=== PATIENT | male | born 1940 | race Asian ===

== ENCOUNTER 2016-11-08 08:28 | Inpatient (IN) | payer OTHER ==
[~2016-11-08] VITALS: Ht 165.1 cm; Wt 60.4 kg
[2016-11-08] VITALS (64 sets, daily range): BP systolic 62–176; BP diastolic 52–84; PULSE 68–103; RESP 0–25; Ht 165.1 cm; Wt 60.4 kg
[~2016-11-08 08:28] MED LIST: AMLO5TAB4 PO; APIX2.5T PO; ASPI-535 PO; CEFAZOLIN 1 GM INJ ONE; FLEC50TA PO; LISI20TA11 PO; METOPROLOL 5 MG INJ ONE
[2016-11-08] MEDS ORDERED: ATOR40TA68 PO (09:42)
[2016-11-08] MEDS ORDERED: BIMA2.5D BOTH EYES (09:42)
[2016-11-08 10:05] LABS: ADD SCAN DIFF NO
[2016-11-08 10:08] LABS: BASOPHIL # 0.1 10^3/ul (0.0-0.1); BASOPHILS % 1.1 % (0.0-2.0); EOSINOPHILS # 0.4 10^3/ul (0.0-0.5); EOSINOPHILS % 5.1 % (0.0-7.0); HEMATOCRIT 41.8 % (42.0-52.0); HEMOGLOBIN 14.2 g/dl (14.0-18.0); LYMPHOCYTES % 25.7 % (15.0-51.0); MEAN CORPUSCULAR HEMOGLOBIN 30.6 pg (29.0-33.0); MEAN CORPUSCULAR VOLUME 90.1 fl (82.0-101.0); MEAN PLATELET VOLUME 9.9 fl (7.4-10.4); MONOCYTE # 0.6 10^3/ul (0.3-0.9); MONOCYTES % 7.5 % (0.0-11.0); NEUTROPHIL # 4.6 10^3/ul (1.6-7.5); NEUTROPHILS % 60.5 % (39.0-77.0); PLATELET COUNT 273 10^3/UL (140-415); RED BLOOD COUNT 4.64 10^6/ul (4.70-6.10); RED CELL DISTRIBUTION WIDTH 12.5 % (11.5-14.5); WHITE BLOOD COUNT 7.6 10^3/ul (4.8-10.8)
--- NOTE | 2016-11-08 10:13 | RADRPT ---
PROCEDURE: XR Chest. CLINICAL INDICATION: PREOP TECHNIQUE: Single frontal chest x-ray. COMPARISON: None. FINDINGS: The lungs are clear of acute infiltrates, edema, effusions, or masses. There is left apical pleural and parenchymal scarring. Focal opacities in the right upper and mid lung zone are seen. No alveol ar infiltrates or effusions.. Mild cardiomegaly with calcific atherosclerosis of the aorta is prese nt.. The osseous structures are intact. IMPRESSION: Focal small opacities in the right upper and mid lung zone. Question scarring. Recommend compariso n with outside chest x-rays. CT scan of the chest could be obtained if further evaluation is indica chito. Left apical pleural and parenchymal scarring. Cardiomegaly with calcified aorta. RPTAT: VV .Bebo Melvin MD, Date Time Electronically viewed and signed by .Bebo Melvin MD, on 11/08/2016 10:13 .L/
[2016-11-08] MEDS ORDERED: BUPIVACAINE 0.25% (MPF) 30 ML INJ ONE (12:13)
[2016-11-08] MEDS ORDERED: GELATIN SIZE 100 SPONGE ONE (12:13)
[2016-11-08] MEDS ORDERED: THROMBIN 5000 UNIT VIAL ONE (12:13)
[2016-11-08] MEDS ORDERED: HEPARIN 1000 UNITS/ML 10 ML INJ ONE ×2 (12:13→13:16)
[2016-11-08] MEDS ORDERED: MIDAZOLAM 1 MG/ML 2 ML INJ ONE (12:21)
--- NOTE | 2016-11-08 12:23 | HPN ---
Date/Time of Note Date/Time of Note DATE: 11/08/16 TIME: 12:22 Interval H&P Admission Note Pt. seen H&P reviewed: No system changes ANUSHA URBINA MD Nov 08, 2016 12:23
[2016-11-08] MEDS ORDERED: hydrALAzine 20 MG INJ ONE (13:11)
[2016-11-08] MEDS ORDERED: BUPIVACAINE 0.5% (SDV) 30 ML INJ ONE (14:28)
[2016-11-08] MEDS ORDERED: GELATIN SIZE 100 SPONGE TOP ONE (14:29)
[2016-11-08] MEDS ORDERED: THROMBIN 5000 UNIT VIAL TOP ONE (14:29)
[2016-11-08] MEDS ORDERED: BUPIVACAINE 0.5% (SDV) 30 ML INJ INJ ONE (14:31)
[2016-11-08] MEDS ORDERED: LIDOCAINE 2% (SDV) 5 ML INJ ONE (14:47)
[2016-11-08] MEDS ORDERED: ETOMIDATE 20 MG INJ ONE (14:47)
[2016-11-08] MEDS ORDERED: ROCURONIUM 50 MG INJ ONE (14:48)
[2016-11-08] MEDS ORDERED: GLYCOPYRROLATE 1 MG INJ ONE (14:48)
[2016-11-08] MEDS ORDERED: NEOSTIGMINE 3 MG/3 ML SYRINGE ONE (14:48)
[2016-11-08] MEDS ORDERED: ONDANSETRON 4 MG INJ ONE (14:48)
--- NOTE | 2016-11-08 15:09 | OPR ---
Date/Time of Note Date/Time of Note DATE: 11/08/16 TIME: 15:07 Operative Report Procedure Date: Nov 08, 2016 Preoperative Diagnosis Left ICA severe stenosis Postoperative Diagnosis same Operation Performed Left CEA and patch Surgeon: ANUSHA URBINA MD assistant hall director: SHARYN KOROMA MD Anesthesia: general Estimated Blood Loss: 100 - 150 ml's Specimens Plaque Tubes/Drains None Complications: None Pt Condition Post Procedure: stable Disposition: PACU ANUSHA URBINA MD Nov 08, 2016 15:09
[2016-11-08] MEDS ORDERED: ACETAMINOPHEN 325 MG TAB PO PRN (15:30)
[2016-11-08] MEDS ORDERED: MEPERIDINE 25 MG INJ IV PRN (15:30)
[2016-11-08] MEDS ORDERED: DIPHENHYDRAMINE 50 MG INJ IV PRN (15:30)
[2016-11-08] MEDS ORDERED: FENTAnyl 50 MCG/ML VIAL IV PRN ×3 (15:30)
[2016-11-08] MEDS ORDERED: morphine (1 MG/ML) 10ML SYRINGE IV PRN ×3 (15:30)
[2016-11-08] MEDS ORDERED: ONDANSETRON 4 MG INJ IV PRN (15:30)
[2016-11-08] MEDS ORDERED: HYDROmorphONE (0.2 MG/ML) 10ML SYG IV PRN ×3 (15:30)
[2016-11-08] MEDS ORDERED: HYDROmorphONE (0.2 MG/ML) 10ML SYG IV ONE (15:33)
[2016-11-08] MEDS: CEFAZOLIN 2 GM/50 ML (PMX) 50 ML IVPB SCH (15:48)
[2016-11-08] MEDS: SOD CHLORIDE 0.9% 1,000 ML IV SCH (15:49)
[2016-11-08 19:22] LABS: POTASSIUM 3.6 mmol/L (3.5-5.1)
[2016-11-08 19:23] LABS: CALCIUM 8.2 mg/dl (8.4-10.2)
[2016-11-08] MEDS: FAMOTIDINE 20 MG INJ IV SCH (21:52)
--- NOTE | 2016-11-08 22:11 | QN ---
Documentation Comment [id number] LESTER ROSENTHAL MD Nov 08, 2016 22:11
[2016-11-08] MEDS ORDERED: ATORVASTATIN 40 MG TAB PO SCH (22:30)
[2016-11-09] VITALS (33 sets, daily range): BP systolic 115–175; BP diastolic 44–138; PULSE 65–110; RESP 11–25
[2016-11-09] MEDS: hydrALAzine 20 MG INJ IV PRN (00:51)
[2016-11-09] MEDS: SOD CHLORIDE 0.9% 1,000 ML IV SCH ×3 (00:51→23:50)
[2016-11-09] MEDS: LATANOPROST 0.005% 2.5 ML OPH BOTH EYES SCH ×2 (00:51→21:13)
[2016-11-09] MEDS: CEFAZOLIN 2 GM/50 ML (PMX) 50 ML IVPB SCH ×2 (01:27→08:02)
--- NOTE | 2016-11-09 03:38 | SP ---
DATE OF PROCEDURE: 11/08/2016 PREOPERATIVE DIAGNOSIS: Severe left internal carotid artery stenosis. POSTOPERATIVE DIAGNOSIS: Severe left internal carotid artery stenosis. OPERATION PERFORMED: Left carotid endarterectomy with patch angioplasty. SURGEON: Anusha Wallace MD PRINTING WORKER SUPERVISOR: Rajendra Osorio MD ANESTHESIA: General by Valente Laguna MD. INDICATION OF THE PROCEDURE: The patient is a 76-year-old male who presented with a high-grade zohra nosis of left CA, confirmed on a CTA of the carotid. The patient was consented for the above-mentio nazia procedure. Risks and benefits were discussed with him and his family. They understood and agre ed to proceed. DESCRIPTION OF PROCEDURE: The patient was brought to the operating room, after obtaining informed c onsent, placed in supine position on the operating table. Anesthesia was administered and maintaine d using endotracheal intubation. The area of surgery was cleaned, prepped and draped in regular zohra rile fashion. An oblique incision along the anterior border of the left sternomastoid muscle was do ne using 15-blade scalpel, taken down to subcutaneous tissue using the Bovie. Using sharp dissectio n with Metzenbaum scissor, the carotid sheath was opened carefully. The common carotid, internal ca rotid and external carotid arteries were identified, dissected circumferentially with Metzenbaum sci ssor. Tributaries from the internal jugular vein were doubly ligated with 3-0 silk suture and trans ected. The vagus and hypoglossal nerves were identified and preserved through the entire procedure. The patient was heparinized intravenously. A longitudinal arteriotomy was done in the common myers tid artery, extended to the intact internal carotid artery using Padgett scissor and 11-blade scalpel. Then, a straight shunt was placed in the lumen. Lumen was flushed with heparinized saline to freida ve the debris. Endarterectomy was done using blunt finger with loose transitioning of the intima pr oximally and distally. The lumen was flushed multiple times to remove the debris carefully and aide d by fine forceps. The distal and the proximal intima were tacked in place using interrupted suture 6-0 and 5-0 Prolene sutures. Using closing patch the arteriotomy was closed using 5-0 and 6-0 Prol brook suture in a continuous running technique. Prior to completion of suture line, the shunt was rem maurizio. Retrograde and antegrade flush of the lumen was flush completed. Hemostasis of suture line achieved using Gelfoam thrombin, and 0.5% Marcaine was then used to infiltrate skin and subcuta neous tissue for postoperative pain control. Subcutaneous tissue, platysma were closed in multiple layers using 3-0 Vicryl sutures. The edges of the skin approximated together using 4-0 Monocryl in subcuticular fashion. Steri-Strips were applied, as well as dry dressing. The patient was then ext ubated successfully and was found to be neurologically intact, transferred to recovery area in stabl e condition. Dictated By: ANUSHA STYLES/JO-ANN Conf#: [id number] DID#: [id number] CC: CAMILLA WHITE MD;*End*
[2016-11-09 04:38] LABS: ADD SCAN DIFF NO
--- NOTE | 2016-11-09 04:40 | HP ---
DATE OF ADMISSION: 11/08/2016 HISTORY OF PRESENT ILLNESS: Thank you, Dr. Wallace, for kindly asking me to see this patient in consultation. The patient has a history of hypertension, dyslipidemia, left carotid artery endarterectomy, and is . The patient himself is unable to give any detailed since he is sleepy. PAST MEDICAL HISTORY: Positive for hypertension, dyslipidemia, and status post left carotid artery endarterectomy. ALLERGIES: . MEDICATION HISTORY: 1. Amlodipine. 2. Apixaban. 3. Lipitor. 4. Lumigan. 5. Lisinopril. REVIEW OF SYSTEMS: Cannot be obtained at this point. PHYSICAL EXAMINATION: GENERAL: The patient is awake, alert, sleepy. VITAL SIGNS: Pulse 81, blood pressure 100/71. HEENT: Head is atraumatic, normocephalic. Pupils equal, reactive to light. NECK: Supple. No JVD. LUNGS: Clear. CARDIOVASCULAR: S1, S2 normal. ABDOMEN: Soft, nontender. Bowel sounds present. No palpable mass. EXTREMITIES: No cyanosis, clubbing, edema. CENTRAL NERVOUS SYSTEM: The patient is awake, alert, no deficit. The patient has a dressing left carotid artery noted. LABORATORY DATA: Sodium 142, potassium 3.6, . IMPRESSION: 1. Status post left carotid endarterectomy. 2. Hypertension. PLAN: To follow recommendation from Dr. Wallace. The patient will have home medications reviewed and continued for blood pressure control. Laboratory data will be obtained. Pain medications and DVT prophylaxis. Dictated By: LESTER THORNTON/JO-ANN Conf#: [id number] DID#: [id number] MTDD
[2016-11-09 04:52] LABS: BASOPHILS % 0.3 % (0.0-2.0); EOSINOPHILS # 0.1 10^3/ul (0.0-0.5); EOSINOPHILS % 0.6 % (0.0-7.0); HEMATOCRIT 39.9 % (42.0-52.0); HEMOGLOBIN 13.2 g/dl (14.0-18.0); LYMPHOCYTES # 0.8 10^3/ul (0.8-2.9); LYMPHOCYTES % 7.1 % (15.0-51.0); MEAN CORPUSCULAR HEMOGLOBIN 29.9 pg (29.0-33.0); MEAN CORPUSCULAR HGB CONC 33.1 g/dl (32.0-37.0); MEAN CORPUSCULAR VOLUME 90.3 fl (82.0-101.0); MEAN PLATELET VOLUME 9.9 fl (7.4-10.4); MONOCYTE # 0.9 10^3/ul (0.3-0.9); MONOCYTES % 7.9 % (0.0-11.0); NEUTROPHILS % 83.7 % (39.0-77.0); PLATELET COUNT 247 10^3/UL (140-415); RED BLOOD COUNT 4.42 10^6/ul (4.70-6.10); WHITE BLOOD COUNT 10.8 10^3/ul (4.8-10.8)
[2016-11-09 04:57] LABS: POTASSIUM 4.2 mmol/L (3.5-5.1)
[2016-11-09 05:00] LABS: CREATININE 1.04 mg/dl (0.61-1.24)
[2016-11-09 05:01] LABS: CALCIUM 8.2 mg/dl (8.4-10.2)
[2016-11-09] MEDS: ONDANSETRON 4 MG INJ IV PRN (05:35)
[2016-11-09] MEDS: PANTOPRAZOLE 40 MG INJ IV SCH (05:35)
[2016-11-09] MEDS: morphine 2 MG INJ IV PRN (05:36)
[2016-11-09] MEDS: LISINOPRIL 20 MG TAB PO SCH (08:07)
[2016-11-09] MEDS: AMLODIPINE 2.5 MG TAB PO SCH (08:07)
[2016-11-09] MEDS: FAMOTIDINE 20 MG INJ IV SCH (08:36)
--- NOTE | 2016-11-09 13:13 | PN ---
Date/Time of Note Date/Time of Note DATE: 11/09/16 TIME: 13:11 Assessment/Plan Lines/Catheters IV Catheter Type (from Nrsg): Peripheral IV Lambert in Place (from Nrsg): Yes Assessment/Plan Assessment/Plan Doing well s/p L CEA Discharge home f/u with Dr. Wallace in the office in 7-10 days Subjective 24 Hr Interval Summary Awake and alert, no pain. Speech fluent. Tolerating regular diet. Exam/Review of Systems Vital Signs Vitals Vital Signs Date Time Temp Pulse Resp B/P Pulse Ox O2 Delivery O2 Flow Rate FiO2 11/09/16 12:00 75 11/09/16 08:00 Nasal Cannula 2.0 11/09/16 06:30 19 158/59 94 11/09/16 04:00 99.0 Intake and Output 11/08/16 11/08/16 11/09/16 15:00 23:00 07:00 Intake Total 1540 ml 1390 ml Output Total 880 ml 590 ml Balance 660 ml 800 ml Exam Free Text/Dictation L neck incision flat, clean and dry Tongue midline Normal B U/LE motor and sensory function Results Result Diagram: 11/09/16 0425 11/09/16 0425 ELIZABETH EPPERSON MD Nov 09, 2016 13:13
[2016-11-09] MEDS: ATORVASTATIN 10 MG TAB PO SCH (21:13)
[2016-11-09] MEDS: IBUPROFEN 600 MG TAB PO PRN (21:14)
--- NOTE | 2016-11-09 23:02 | PN ---
Date/Time of Note Date/Time of Note DATE: 11/09/16 TIME: 23:01 Assessment/Plan VTE Prophylaxis VTE Prophylaxis Intervention: other Lines/Catheters IV Catheter Type (from Nrsg): Peripheral IV Urinary Cath still in place: Yes Reason Cath still needed: other (indicate) Assessment/Plan Chief Complaint/Hosp Course IMPRESSION: 1. Status post left carotid endarterectomy. 2. Hypertension. plan per surgery pt/ot Problems: Subjective 24 Hr Interval Summary Subjective hx not possible: other (weakness) Genitourinary: no complaints Musculoskeletal: no complaints Exam/Review of Systems Vital Signs Vitals Vital Signs Date Time Temp Pulse Resp B/P Pulse Ox O2 Delivery O2 Flow Rate FiO2 11/09/16 21:07 2.0 11/09/16 20:00 100.4 110 22 151/61 93 Nasal Cannula Intake and Output 11/08/16 11/08/16 11/09/16 15:00 23:00 07:00 Intake Total 1540 ml 1490 ml Output Total 880 ml 590 ml Balance 660 ml 900 ml Exam Respiratory: clear to auscultation Cardiovascular: regular rate and rhythm Gastrointestinal: soft Musculoskeletal: nl extremities to inspection Neurological: EDUCATIONAL TECHNOLOGY SPECIALIST II-XII intact, nl mental status Results Result Diagram: 11/09/165 11/09/16 0425 Results 24 hrs Laboratory Tests Test 11/09/16 04:25 White Blood Count 10.8 # Red Blood Count 4.42 L Hemoglobin 13.2 L Hematocrit 39.9 L Mean Corpuscular Volume 90.3 Mean Corpuscular Hemoglobin 29.9 Mean Corpuscular Hemoglobin Concent 33.1 Red Cell Distribution Width 13.0 Platelet Count 247 Mean Platelet Volume 9.9 Neutrophils % 83.7 H Lymphocytes % 7.1 L Monocytes % 7.9 Eosinophils % 0.6 Basophils % 0.3 Nucleated Red Blood Cells % 0.0 Neutrophils # 9.0 H Lymphocytes # 0.8 Monocytes # 0.9 Eosinophils # 0.1 Basophils # 0.0 Nucleated Red Blood Cells # 0.0 Sodium Level 142 Potassium Level 4.2 Chloride Level 108 Carbon Dioxide Level 22 Anion Gap 16 Blood Urea Nitrogen 12 Creatinine 1.04 Glucose Level 125 Calcium Level 8.2 L Medications Medications Current Medications Acetaminophen (Tylenol Tab) 650 mg Q6H PRN PO PAIN AND OR ELEVATED TEMP; Start 11/08/16 at 15:30 Ondansetron HCl (Zofran Inj) 4 mg Q6H PRN IV NAUSEA AND/OR VOMITING Last administered on 11/09/16 05:35; Admin Dose 4 MG; Start 11/08/16 at 15:30 Famotidine 20 mg 20 mg DAILY IV Last administered on 11/09/16 08:36; Admin Dose 20 MG; Start 11/08/16 at 21:00 Sodium Chloride (NS) 1,000 ml @ 100 mls/hr Q10H IV Last administered on 12:33; Admin Dose 100 MLS/HR; Start 11/08/16 at 15:07 Morphine Sulfate (morphine) 2 mg Q4H PRN IV PAIN LEVEL 4-6 Last administered on 11/09/16 05:36; Admin Dose 2 MG; Start 11/08/16 at 19:00 Amlodipine Besylate (Norvasc) 2.5 mg DAILY PO Last administered on 11/09/16 08 :07; Admin Dose 2.5 MG; Start 11/09/16 at 09:00 Latanoprost (Xalatan) 1 drop HS BOTH EYES Last administered on 11/09/16 21:13 ; Admin Dose 1 DROP; Start 11/08/16 at 23:00 Lisinopril (Zestril) 20 mg DAILY PO Last administered on 11/09/16 08:07; Admin Dose 20 MG; Start 11/09/16 at 09:00 Pantoprazole (Protonix Iv) 40 mg DAILY@06 IV Last administered on 11/09/16 05: 35; Admin Dose 40 MG; Start 11/09/16 at 06:00 Hydralazine HCl (Apresoline) 10 mg Q6H PRN IV For SBP > 165 Last administered on 11/09/16 00:51; Admin Dose 10 MG; Start 11/08/16 at 22:30 Atorvastatin Calcium (Lipitor) 10 mg QHS PO Last administered on 11/09/16 21: 13; Admin Dose 10 MG; Start 11/08/16 at 22:31 Ibuprofen (Motrin) 600 mg BID PRN PO INFLAMATION Last administered on 21:14; Admin Dose 600 MG; Start 11/09/16 at 17:30 LESTER ROSENTHAL MD Nov 09, 2016 23:02
[2016-11-10] VITALS (23 sets, daily range): BP systolic 97–163; BP diastolic 57–90; PULSE 62–97; RESP 15–23
[2016-11-10] MEDS: PANTOPRAZOLE 40 MG INJ IV SCH (05:33)
[2016-11-10] MEDS: IBUPROFEN 600 MG TAB PO PRN ×2 (06:09→19:36)
[2016-11-10] MEDS: LISINOPRIL 20 MG TAB PO SCH (09:03)
[2016-11-10] MEDS: AMLODIPINE 2.5 MG TAB PO SCH (09:04)
[2016-11-10] MEDS: FAMOTIDINE 20 MG INJ IV SCH (09:04)
[2016-11-10] MEDS: SOD CHLORIDE 0.9% 1,000 ML IV SCH ×2 (10:08→18:15)
[2016-11-10 12:13] LABS: ADD SCAN DIFF NO
[2016-11-10 12:15] LABS: ABNORMAL IP MESSAGE 1; BASOPHILS % 0.2 % (0.0-2.0); EOSINOPHILS # 0.2 10^3/ul (0.0-0.5); EOSINOPHILS % 1.1 % (0.0-7.0); HEMATOCRIT 36.6 % (42.0-52.0); HEMOGLOBIN 12.3 g/dl (14.0-18.0); LYMPHOCYTES # 1.4 10^3/ul (0.8-2.9); MEAN CORPUSCULAR HEMOGLOBIN 31.1 pg (29.0-33.0); MEAN CORPUSCULAR HGB CONC 33.6 g/dl (32.0-37.0); MEAN CORPUSCULAR VOLUME 92.4 fl (82.0-101.0); MEAN PLATELET VOLUME 9.8 fl (7.4-10.4); MONOCYTE # 1.5 10^3/ul (0.3-0.9); MONOCYTES % 11.2 % (0.0-11.0); NEUTROPHIL # 10.5 10^3/ul (1.6-7.5); PLATELET COUNT 203 10^3/UL (140-415); RED BLOOD COUNT 3.96 10^6/ul (4.70-6.10); RED CELL DISTRIBUTION WIDTH 12.9 % (11.5-14.5); WHITE BLOOD COUNT 13.7 10^3/ul (4.8-10.8)
[2016-11-10 12:24] LABS: POTASSIUM 4.4 mmol/L (3.5-5.1)
[2016-11-10 12:27] LABS: CREATININE 1.18 mg/dl (0.61-1.24)
[2016-11-10 12:28] LABS: CALCIUM 8.4 mg/dl (8.4-10.2); URIC ACID 6.4 mg/dl (3.1-7.9)
[2016-11-10] MEDS: COLCHICINE 0.6 MG TAB PO SCH ×2 (13:21→22:08)
[2016-11-10] MEDS: morphine 2 MG INJ IV PRN (13:27)
[2016-11-10] MEDS: ONDANSETRON 4 MG INJ IV PRN (13:27)
[2016-11-10] MEDS ORDERED: VANCOMYCIN IV PER PHARMACY XX SCH (19:30)
[2016-11-10] MEDS: CEFTRIAXONE 1 GM/50 ML (PMX) 50 ML IVPB SCH (19:34)
[2016-11-10] MEDS: hydrALAzine 20 MG INJ IV PRN (19:36)
[2016-11-10] MEDS ORDERED: VANCOMYCIN 1.25 GM in SOD CHLORIDE 0.9% 250 ML IVPB SCH (20:00)
--- NOTE | 2016-11-10 20:08 | RADRPT ---
PROCEDURE: XR Chest AP portable CLINICAL INDICATION: Fever TECHNIQUE: An AP portable radiograph of the chest was submitted. COMPARISON: 11/08/2016 FINDINGS: Support Hardware: None Cardiovascular: The heart remains mildly enlarged and the pulmonary vasculature appears unremarkable . The aorta again appears atherosclerotic. Lung Martinez: Reticular scarring with volume loss is again evident within the left upper lobe and to a lesser extent within the right mid lung zone and left lower lung zone, unchanged. No alveolar inf iltrate is evident. Pleural Spaces: No pneumothorax or pleural effusion is identified. Osseous Structures: The osseous structures appear intact. Soft Tissues: The soft tissues appear unremarkable. IMPRESSION: 1. No change to the reticular scarring and volume loss of the left upper lobe and also to the right mid lung zone and to a lesser extent the left lung base. No alveolar infiltrate or nodule is evide nt. 2. Persistent cardiomegaly with atherosclerotic changes to the aorta without CHF. Physician Enrico Date Time Electronically viewed and signed by Physician Enrico on 11/10/2016 20:08 /
[2016-11-10] MEDS: METHYLPREDNISOLONE 40 MG INJ IV SCH (21:00)
[2016-11-10] MEDS: ATORVASTATIN 10 MG TAB PO SCH (22:08)
[2016-11-10] MEDS: LATANOPROST 0.005% 2.5 ML OPH BOTH EYES SCH (23:00)
--- NOTE | 2016-11-10 23:13 | PN ---
Date/Time of Note Date/Time of Note DATE: 11/10/16 TIME: 23:11 Assessment/Plan VTE Prophylaxis VTE Prophylaxis Intervention: other Lines/Catheters IV Catheter Type (from Nrsg): Peripheral IV Assessment/Plan Chief Complaint/Hosp Course IMPRESSION: 1. Status post left carotid endarterectomy. 2. Hypertension. 3 knee pain 4 poss gout plan per surgery pt/ot ,pain meds Problems: Subjective 24 Hr Interval Summary Cardiovascular: no complaints Gastrointestinal: no complaints Musculoskeletal: swelling Exam/Review of Systems Vital Signs Vitals Vital Signs Date Time Temp Pulse Resp B/P Pulse Ox O2 Delivery O2 Flow Rate FiO2 11/10/16 20:19 97 11/10/16 19:08 100.0 16 163/79 92 11/10/16 17:00 Nasal Cannula 2.0 Intake and Output 11/09/16 11/09/16 11/10/16 15:00 23:00 07:00 Intake Total 1130 ml 850 ml 1015 ml Output Total 535 ml 500 ml 700 ml Balance 595 ml 350 ml 315 ml Exam Neck: supple Respiratory: clear to auscultation Cardiovascular: regular rate and rhythm Musculoskeletal: range of motion (knee pain) Results Result Diagram: 11/10/16 1204 11/10/16 1204 Results 24 hrs Laboratory Tests Test 11/10/16 12:04 White Blood Count 13.7 #H Red Blood Count 3.96 L Hemoglobin 12.3 L Hematocrit 36.6 L Mean Corpuscular Volume 92.4 Mean Corpuscular Hemoglobin 31.1 Mean Corpuscular Hemoglobin Concent 33.6 Red Cell Distribution Width 12.9 Platelet Count 203 Mean Platelet Volume 9.8 Neutrophils % 77.0 Lymphocytes % 10.0 L Monocytes % 11.2 H Eosinophils % 1.1 Basophils % 0.2 Nucleated Red Blood Cells % 0.0 Neutrophils # 10.5 H Lymphocytes # 1.4 Monocytes # 1.5 H Eosinophils # 0.2 Basophils # 0.0 Nucleated Red Blood Cells # 0.0 Sodium Level 144 Potassium Level 4.4 Chloride Level 109 Carbon Dioxide Level 25 Anion Gap 14 Blood Urea Nitrogen 11 Creatinine 1.18 Glucose Level 76 # Uric Acid 6.4 Calcium Level 8.4 Medications Medications Current Medications Acetaminophen (Tylenol Tab) 650 mg Q6H PRN PO PAIN AND OR ELEVATED TEMP Last administered on 11/10/16t 19:36; Admin Dose 650 MG; Start 11/08/16 at 15:30 Ondansetron HCl 4 mg 4 mg Q6H PRN IV NAUSEA AND/OR VOMITING Last administered on 11/10/16 13:27; Admin Dose 4 MG; Start 11/08/16 at 15:30 Sodium Chloride (NS) 1,000 ml @ 100 mls/hr Q10H IV Last administered on 10:08; Admin Dose 100 MLS/HR; Start 11/08/16 at 15:07 Morphine Sulfate (morphine) 2 mg Q4H PRN IV PAIN LEVEL 4-6 Last administered on 11/10/16 13:27; Admin Dose 2 MG; Start 11/08/16 at 19:00 Amlodipine Besylate (Norvasc) 2.5 mg DAILY PO Last administered on 11/10/16 09 :04; Admin Dose 2.5 MG; Start 11/09/16 at 09:00 Latanoprost (Xalatan) 1 drop HS BOTH EYES Last administered on 11/09/16 21:13 ; Admin Dose 1 DROP; Start 11/08/16 at 23:00 Lisinopril (Zestril) 20 mg DAILY PO Last administered on 11/10/16 09:03; Admin Dose 20 MG; Start 11/09/16 at 09:00 Pantoprazole (Protonix Iv) 40 mg DAILY@06 IV Last administered on 11/10/16 05: 33; Admin Dose 40 MG; Start 11/09/16 at 06:00 Hydralazine HCl (Apresoline) 10 mg Q6H PRN IV For SBP > 165 Last administered on 11/10/16 19:36; Admin Dose 10 MG; Start 11/08/16 at 22:30 Atorvastatin Calcium (Lipitor) 10 mg QHS PO Last administered on 11/10/16 22: 08; Admin Dose 10 MG; Start 11/08/16 at 22:31 Ibuprofen (Motrin) 600 mg BID PRN PO INFLAMATION Last administered on 19:36; Admin Dose 600 MG; Start 11/09/16 at 17:30 Colchicine (Colchicine) 0.6 mg BID PO Last administered on 11/10/16 22:08; Admin Dose 0.6 MG; Start 11/10/16 at 11:30 Methylprednisolone Sodium Succinate 40 mg 40 mg DAILY IV ; Start 11/10/16 at 21: 00 Ceftriaxone Sodium (Rocephin) 50 ml @ 100 mls/hr Q24H IVPB Last administered on 11/10/16t 19:34; Admin Dose 100 MLS/HR; Start 11/10/16 at 19:30 LESTER ROSENTHAL MD Nov 10, 2016 23:13
[2016-11-11] VITALS (11 sets, daily range): BP systolic 137–165; BP diastolic 65–74; PULSE 68–112; RESP 18–21
[2016-11-11] MEDS: SOD CHLORIDE 0.9% 1,000 ML IV SCH ×3 (03:07→19:28)
[2016-11-11] MEDS: PANTOPRAZOLE 40 MG INJ IV SCH (06:07)
[2016-11-11] MEDS: morphine 2 MG INJ IV PRN ×3 (08:07→20:06)
[2016-11-11] MEDS: LISINOPRIL 20 MG TAB PO SCH (08:09)
[2016-11-11] MEDS: AMLODIPINE 2.5 MG TAB PO SCH (08:09)
[2016-11-11] MEDS: COLCHICINE 0.6 MG TAB PO SCH ×2 (08:09→21:38)
[2016-11-11 09:13] LABS: ADD SCAN DIFF NO
[2016-11-11 09:17] LABS: BASOPHIL # 0.1 10^3/ul (0.0-0.1); BASOPHILS % 0.4 % (0.0-2.0); EOSINOPHILS # 0.2 10^3/ul (0.0-0.5); EOSINOPHILS % 1.6 % (0.0-7.0); HEMATOCRIT 34.2 % (42.0-52.0); HEMOGLOBIN 11.6 g/dl (14.0-18.0); LYMPHOCYTES # 0.9 10^3/ul (0.8-2.9); LYMPHOCYTES % 6.5 % (15.0-51.0); MEAN CORPUSCULAR HGB CONC 33.9 g/dl (32.0-37.0); MEAN CORPUSCULAR VOLUME 91.4 fl (82.0-101.0); MEAN PLATELET VOLUME 10.1 fl (7.4-10.4); MONOCYTE # 1.2 10^3/ul (0.3-0.9); MONOCYTES % 8.8 % (0.0-11.0); NEUTROPHIL # 10.7 10^3/ul (1.6-7.5); NEUTROPHILS % 82.2 % (39.0-77.0); PLATELET COUNT 181 10^3/UL (140-415); RED BLOOD COUNT 3.74 10^6/ul (4.70-6.10); RED CELL DISTRIBUTION WIDTH 12.9 % (11.5-14.5)
[2016-11-11 09:30] LABS: ALBUMIN 2.7 g/dl (3.3-4.9)
[2016-11-11 09:31] LABS: POTASSIUM 3.5 mmol/L (3.5-5.1)
[2016-11-11 09:33] LABS: BILIRUBIN,INDIRECT 0.5 mg/dl (0-1.1); BILIRUBIN,TOTAL 0.5 mg/dl (0.2-1.3); CREATININE 1.11 mg/dl (0.61-1.24)
[2016-11-11 09:34] LABS: ALBUMIN/GLOBULIN RATIO 0.93; TOTAL PROTEIN 5.6 g/dl (6.1-8.1)
[2016-11-11] MEDS: IBUPROFEN 600 MG TAB PO PRN (13:36)
[2016-11-11 15:27] LABS: URINE BILIRUBIN (Dip) NEGATIVE (NEGATIVE); URINE BLOOD (Dip) NEGATIVE (NEGATIVE); URINE COLOR LT. YELLOW (YELLOW); URINE GLUCOSE (Dip) NEGATIVE (NEGATIVE); URINE KETONES (Dip) TRACE (NEGATIVE); URINE LEUKOCYTE ESTERASE (Dip) NEGATIVE (NEGATIVE); URINE NITRITE (Dip) NEGATIVE (NEGATIVE); URINE UROBILINOGEN (Dip) 0.2 E.U./dL (0.1-1.0)
[2016-11-11 15:30] LABS: ADD UMIC NO; URINE TOTAL PROTEIN (Dip) NEGATIVE (NEGATIVE)
--- NOTE | 2016-11-11 16:21 | CONS ---
Date/Time of Note Date/Time of Note DATE: 11/11/16 TIME: 16:19 Assessment/Plan Assessment/Plan Chief Complaint/Hosp Course 1. Status post left carotid endarterectomy. 2. Hypertension. 3 knee pain 4 possible gout Problems: Additional Assessment/Plan 1, Per surgeon Consultation Date/Type/Reason Admit Date/Time Nov 08, 2016 at 08:28 Initial Consult Date 11/09/2016 Type of Consultation: Dr Brito Reason for Consultation nephrology 24 HR Interval Summary Constitutional: improved Exam/Review of Systems Vital Signs Vitals Vital Signs Date Time Temp Pulse Resp B/P Pulse Ox O2 Delivery O2 Flow Rate FiO2 11/11/16 15:40 98.2 18 19 137/65 98 11/10/16 20:07 Nasal Cannula 2.0 Intake and Output 11/10/16 11/10/16 11/11/16 15:00 23:00 07:00 Intake Total 1150 ml 200 ml 200 ml Output Total 625 ml 300 ml Balance 525 ml 200 ml -100 ml Exam Constitutional: alert, oriented Psych: no complaints Head: normocephalic Neck: other (with left side postsurgical dressing) Respiratory: clear to auscultation Cardiovascular: irregular rhythm Gastrointestinal: soft Genitourinary - Male: nl penis Extremities: other (weakness) Results Result Diagram: 11/11/16 0756 11/11/16 0856 Results 24 hrs Laboratory Tests Test 11/11/16 05:35 11/11/16 07:56 11/11/16 08:56 Urine Color LT. YELLOW Urine Clarity CLEAR Urine pH 5.5 Urine Specific Mona 1.020 Urine Ketones TRACE Urine Nitrite NEGATIVE Urine Bilirubin NEGATIVE Urine Urobilinogen 0.2 E.U./dL Urine Leukocyte Esterase NEGATIVE Urine Hemoglobin NEGATIVE Urine Glucose NEGATIVE Urine Total Protein NEGATIVE White Blood Count 13.0 H Red Blood Count 3.74 L Hemoglobin 11.6 L Hematocrit 34.2 L Mean Corpuscular Volume 91.4 Mean Corpuscular Hemoglobin 31.0 Mean Corpuscular Hemoglobin Concent 33.9 Red Cell Distribution Width 12.9 Platelet Count 181 Mean Platelet Volume 10.1 Neutrophils % 82.2 H Lymphocytes % 6.5 L Monocytes % 8.8 Eosinophils % 1.6 Basophils % 0.4 Nucleated Red Blood Cells % 0.0 Neutrophils # 10.7 H Lymphocytes # 0.9 Monocytes # 1.2 H Eosinophils # 0.2 Basophils # 0.1 Nucleated Red Blood Cells # 0.0 Sodium Level 144 Potassium Level 3.5 Chloride Level 112 H Carbon Dioxide Level 21 Anion Gap 15 Blood Urea Nitrogen 11 Creatinine 1.11 Glucose Level 127 # Calcium Level 8.0 L Total Bilirubin 0.5 Direct Bilirubin 0.00 Indirect Bilirubin 0.5 Aspartate Amino Transf (AST/SGOT) 38 Alanine Aminotransferase (ALT/SGPT) 25 Alkaline Phosphatase 73 Total Protein 5.6 L Albumin 2.7 L Globulin 2.90 Albumin/Globulin Ratio 0.93 Medications Medications Current Medications Acetaminophen (Tylenol Tab) 650 mg Q6H PRN PO PAIN AND OR ELEVATED TEMP Last administered on 11/10/16 19:36; Admin Dose 650 MG; Start 11/08/16 at 15:30 Ondansetron HCl 4 mg 4 mg Q6H PRN IV NAUSEA AND/OR VOMITING Last administered on 11/10/16 13:27; Admin Dose 4 MG; Start 11/08/16 at 15:30 Sodium Chloride (NS) 1,000 ml @ 100 mls/hr Q10H IV Last administered on 10:00; Admin Dose 100 MLS/HR; Start 11/08/16 at 15:07 Morphine Sulfate (morphine) 2 mg Q4H PRN IV PAIN LEVEL 4-6 Last administered on 11/11/16 12:13; Admin Dose 2 MG; Start 11/08/16 at 19:00 Amlodipine Besylate (Norvasc) 2.5 mg DAILY PO Last administered on 11/11/16 08 :09; Admin Dose 2.5 MG; Start 11/09/16 at 09:00 Latanoprost (Xalatan) 1 drop HS BOTH EYES Last administered on 11/09/16 21:13 ; Admin Dose 1 DROP; Start 11/08/16 at 23:00 Lisinopril (Zestril) 20 mg DAILY PO Last administered on 11/11/16 08:09; Admin Dose 20 MG; Start 11/09/16 at 09:00 Pantoprazole (Protonix Iv) 40 mg DAILY@06 IV Last administered on 11/11/16 06: 07; Admin Dose 40 MG; Start 11/09/16 at 06:00 Hydralazine HCl (Apresoline) 10 mg Q6H PRN IV For SBP > 165 Last administered on 11/10/16 19:36; Admin Dose 10 MG; Start 11/08/16 at 22:30 Atorvastatin Calcium (Lipitor) 10 mg QHS PO Last administered on 11/10/16 22: 08; Admin Dose 10 MG; Start 11/08/16 at 22:31 Ibuprofen (Motrin) 600 mg BID PRN PO INFLAMATION Last administered on 13:36; Admin Dose 600 MG; Start 11/09/16 at 17:30 Colchicine (Colchicine) 0.6 mg BID PO Last administered on 11/11/16 08:09; Admin Dose 0.6 MG; Start 11/10/16 at 11:30 Methylprednisolone Sodium Succinate 40 mg 40 mg DAILY IV ; Start 11/10/16 at 21: 00 Ceftriaxone Sodium 50 ml @ 100 mls/hr Q24H IVPB Last administered on 19:34; Admin Dose 100 MLS/HR; Start 11/10/16 at 19:30 Vancomycin HCl (Vancocin) 250 ml @ 125 mls/hr Q24H IVPB ; Start 11/11/16 at 22: 00 ROCHELLE DAVIS 24, 2017 16:21
[2016-11-11] MEDS ORDERED: BETAMET NA PHOS/AC(6 MG/ML) 5ML INJ INJ ONE (17:30)
[2016-11-11] MEDS ORDERED: BUPIVACAINE 0.5%/EPI (SDV) 30 ML INJ INJ ONE (17:30)
[2016-11-11] MEDS: CEFTRIAXONE 1 GM/50 ML (PMX) 50 ML IVPB SCH (20:06)
[2016-11-11] MEDS: ATORVASTATIN 10 MG TAB PO SCH (21:38)
[2016-11-11] MEDS: LATANOPROST 0.005% 2.5 ML OPH BOTH EYES SCH (21:39)
[2016-11-11] MEDS ORDERED: VANCOMYCIN 1 GM in NS 250 ML IVPB SCH (22:00)
[2016-11-12] VITALS (9 sets, daily range): BP systolic 145–173; BP diastolic 80–94; PULSE 78–120; RESP 19–20
[2016-11-12] MEDS: PANTOPRAZOLE 40 MG INJ IV SCH (05:48)
--- NOTE | 2016-11-12 06:49 | CONS ---
DATE OF ADMISSION: 11/08/2016 DATE OF CONSULTATION: 11/11/2016 HISTORY OF PRESENT ILLNESS: The patient is a 76-year-old male who was admitted on 11/08/2016 for valera rgery, endarterectomy and application of a patch of the left carotid artery for severe left carotid artery stenosis. He underwent a left carotid artery endarterectomy successfully as scheduled on . He is known to have a history of hypertension, dyslipidemia and left carotid artery stenosis. He was complaining of painful swelling involving his left knee, and orthopedic surgery was consulted . On inquiring, he had a similar painful swelling involving left knee about 4 years ago and was treate d with steroid injection of the left knee under the diagnostic impression of gouty arthritis. At th is time, he was complaining of recurrent painful swelling involving his left knee. PHYSICAL EXAMINATION: My examination revealed a 76-year-old male who is recovering from endarterectomy of the left carotid artery. There was an effusion and tenderness and painful limit of motion involving right knee. Th ere were no signs of a pyogenic septic arthritis of the right knee, such as increased warmth or redn ess. Further examination revealed that there also is tenderness and swelling involving the metacarp ophalangeal joint of the left big toe. He is afebrile at this time with a temperature of 98.5 and there was minimal leukocytosis at 13.0. His serum uric acid level is within normal limits at 6.4. No radiologic studies were available for my review. DIAGNOSTIC IMPRESSION: Painful swelling of the left knee and the metatarsophalangeal joint of the left big toe, most probab ly from gouty arthritis. TREATMENT PLAN: 1. Obtain x-rays of the left knee and left foot. 2. Trial of steroid injection into left knee and left first metatarsophalangeal joint of the left b ig toe after reviewing x-rays. Dictated By: DILIP FERNANDEZ/JO-ANN Conf#: [id number] DID#: [id number]
--- NOTE | 2016-11-12 06:51 | PN ---
DATE: 11/12/2016 X-rays not available; however, whether it is degenerative osteoarthritis documented by x-ray, the po ssibility of gouty arthritis is high because of the combined swelling and pain involving the left bi g toe and left knee, along with the history. He should be treated with a steroid injection of the j oints, and his left knee and metatarsophalangeal joint of the left big toe was injected with a stero id. He can be discharged anytime from an ortho point and further followup can be done as an outpati ent. Dictated By: DILIP FERNANDEZ/JO-ANN Conf#: [id number] DID#: [id number]
[2016-11-12] MEDS: morphine 2 MG INJ IV PRN (07:56)
[2016-11-12] MEDS: METHYLPREDNISOLONE 40 MG INJ IV SCH (07:56)
[2016-11-12] MEDS: COLCHICINE 0.6 MG TAB PO SCH (07:56)
[2016-11-12] MEDS: LISINOPRIL 20 MG TAB PO SCH (07:59)
[2016-11-12] MEDS: AMLODIPINE 2.5 MG TAB PO SCH (07:59)
[2016-11-12] MEDS: SOD CHLORIDE 0.9% 1,000 ML IV SCH ×2 (08:00→18:40)
--- NOTE | 2016-11-12 10:58 | RADRPT ---
PROCEDURE: Left knee x-ray CLINICAL INDICATION: Generalized pain and swelling of the left knee.. TECHNIQUE: AP, lateral and oblique views of the left knee were obtained. COMPARISON: None FINDINGS: There are degenerative spurs off the dorsal surface of the patella with a small joint spac e effusion. Femur and tibia are unremarkable. IMPRESSION: Osteoarthritis of the left knee with a small joint space effusion. RPTAT:AAJJ Physician Davion Date Time Electronically viewed and signed by John Kelly Physician on 11/12/2016 10:58 JM/
--- NOTE | 2016-11-12 10:59 | RADRPT ---
PROCEDURE: XR Left Foot. CLINICAL INDICATION: Swelling. TECHNIQUE: AP, lateral and oblique views of the left foot was obtained. The images were reviewed on a PACS workstation. COMPARISON: No. FINDINGS: There is mild soft tissue swelling of the left foot. The bony elements are normal.. The joint spac es are normal. There is no evidence of subcutaneous emphysema. There are vascular calcifications i n the dorsalis pedis artery. IMPRESSION: 1. Atherosclerotic vascular calcifications in the anterior tibial and dorsalis pedis arteries. 2. Mild soft tissue swelling of the left foot with no evidence of a fracture, osteomyelitis or gas gangrene. Physician Davion Date Time Electronically viewed and signed by Physician Davion on 11/12/2016 10:59 JM/
--- NOTE | 2016-11-12 12:22 | CONS ---
Date/Time of Note Date/Time of Note DATE: 11/12/16 TIME: 12:19 Assessment/Plan Assessment/Plan Chief Complaint/Hosp Course 1. Status post left carotid endarterectomy. 2. Hypertension. 3 knee pain 4 possible gout Problems: Additional Assessment/Plan 1. Continue pt 2. Miralax for constipation prn Consultation Date/Type/Reason Admit Date/Time Nov 08, 2016 at 08:28 Initial Consult Date 11/09/2016 Type of Consultation: Dr Brito 24 HR Interval Summary Constitutional: other (need more physical therapy) Exam/Review of Systems Vital Signs Vitals Vital Signs Date Time Temp Pulse Resp B/P Pulse Ox O2 Delivery O2 Flow Rate FiO2 11/12/16 11:46 98.4 80 19 145/80 98 11/10/16 20:07 Nasal Cannula 2.0 Intake and Output 11/11/16 11/11/16 11/12/16 15:00 23:00 07:00 Intake Total 1550 ml 670 ml Balance 1550 ml 670 ml Exam Constitutional: alert, oriented Psych: no complaints Head: normocephalic Eyes: nl conjunctiva Neck: other (with left side dressing) Respiratory: clear to auscultation Cardiovascular: irregular rhythm, regular rate and rhythm (Afib controlled) Gastrointestinal: other (constipation 4 days), soft Results Result Diagram: 11/11/16 0756 11/11/16 0856 Medications Medications Current Medications Acetaminophen (Tylenol Tab) 650 mg Q6H PRN PO PAIN AND OR ELEVATED TEMP Last administered on 11/10/16 19:36; Admin Dose 650 MG; Start 11/08/16 at 15:30 Ondansetron HCl 4 mg 4 mg Q6H PRN IV NAUSEA AND/OR VOMITING Last administered on 11/10/16 13:27; Admin Dose 4 MG; Start 11/08/16 at 15:30 Sodium Chloride (NS) 1,000 ml @ 100 mls/hr Q10H IV Last administered on 08:00; Admin Dose 100 MLS/HR; Start 11/08/16 at 15:07 Morphine Sulfate (morphine) 2 mg Q4H PRN IV PAIN LEVEL 4-6 Last administered on 11/12/16 07:56; Admin Dose 2 MG; Start 11/08/16 at 19:00 Amlodipine Besylate (Norvasc) 2.5 mg DAILY PO Last administered on 11/12/16 07 :59; Admin Dose 2.5 MG; Start 11/09/16 at 09:00 Latanoprost (Xalatan) 1 drop HS BOTH EYES Last administered on 11/11/16 21:39 ; Admin Dose 1 DROP; Start 11/08/16 at 23:00 Lisinopril (Zestril) 20 mg DAILY PO Last administered on 11/12/16 07:59; Admin Dose 20 MG; Start 11/09/16 at 09:00 Pantoprazole (Protonix Iv) 40 mg DAILY@06 IV Last administered on 11/12/16 05: 48; Admin Dose 40 MG; Start 11/09/16 at 06:00 Hydralazine HCl (Apresoline) 10 mg Q6H PRN IV For SBP > 165 Last administered on 11/10/16 19:36; Admin Dose 10 MG; Start 11/08/16 at 22:30 Atorvastatin Calcium (Lipitor) 10 mg QHS PO Last administered on 11/11/16 21: 38; Admin Dose 10 MG; Start 11/08/16 at 22:31 Ibuprofen (Motrin) 600 mg BID PRN PO INFLAMATION Last administered on 13:36; Admin Dose 600 MG; Start 11/09/16 at 17:30 Colchicine (Colchicine) 0.6 mg BID PO Last administered on 11/12/16 07:56; Admin Dose 0.6 MG; Start 11/10/16 at 11:30 Methylprednisolone Sodium Succinate 40 mg 40 mg DAILY IV Last administered on 07:56; Admin Dose 40 MG; Start 11/10/16 at 21:00 Ceftriaxone Sodium 50 ml @ 100 mls/hr Q24H IVPB Last administered on 20:06; Admin Dose 100 MLS/HR; Start 11/10/16 at 19:30 Vancomycin HCl (Vancocin) 250 ml @ 125 mls/hr Q24H IVPB Last administered on 21:39; Admin Dose 125 MLS/HR; Start 11/11/16 at 22:00 ROCHELLE DAVIS 25, 2017 12:22
[2016-11-12] MEDS ORDERED: BISACODYL 10 MG SUPP PR PRN (12:30)
[2016-11-12] MEDS ORDERED: POLYETHYLENE GLYCOL 17 GM PACKET PO PRN (12:30)
[2016-11-12] MEDS ORDERED: COLC0.6T6 PO (17:54)
[2016-11-12] MEDS ORDERED: PANT40TA3 PO (17:54)
[2016-11-12] MEDS ORDERED: IBUP-1542 PO (17:54)
[2016-11-12] MEDS ORDERED: DOXY100T20 PO (17:54)
[2016-11-12] MEDS ORDERED: MED4DP PO (17:54)
[2016-11-12] MEDS ORDERED: POLY17PO6 PO (17:54)
[2016-11-12] MEDS ORDERED: AMLO5TAB4 PO (17:55)
[2016-11-12] MEDS: CEFTRIAXONE 1 GM/50 ML (PMX) 50 ML IVPB SCH (18:40)
== END 2016-11-12 19:20 | disposition home or self-care (01) | DRG 39 ==
LOC: REC 08:28 → EDSTATUS 13:30 → ICU 21:29 → TEL 11-10 17:45
PROVIDERS: ADMIT Surgery; ATTEND Surgery
PROC: 03UL0KZ Supplement Left Internal Carotid Artery with Nonautologous Tissue Substitute, Open Approach (ICD-10-PCS; 2016-11-08)
PROC: 03CL0ZZ Extirpation of Matter from Left Internal Carotid Artery, Open Approach (ICD-10-PCS; principal; 2016-11-08 12:00)
PROC: 3E0U33Z Introduction of Anti-inflammatory into Joints, Percutaneous Approach (ICD-10-PCS; 2016-11-12)
DX: I65.22 Occlusion and stenosis of left carotid artery (principal); I10 Essential (primary) hypertension; E78.5 Hyperlipidemia, unspecified; M25.562 Pain in left knee; M10.9 Gout, unspecified; M25.572 Pain in left ankle and joints of left foot; Z87.891 Personal history of nicotine dependence
CPT/HCPCS: 71010; 73560; 80048; 80053; 81003; 84560; 85025; 87040; 87086; 88304; 97116; 97162; 97530; C1725; C9113; J0360; J0690; J0696; J0702; J1170; J1644; J2250; J2270; J2405; J2710; J2920; J3010; J3370; J7030; J7050